=== PATIENT | female | born 1995 | race Caucasian/White ===

== ENCOUNTER 2018-04-10 16:12 | Emergency (ER) | payer OTHER ==
[2018-04-10 16:22] VITALS: BP 122/62
[2018-04-10] MEDS ORDERED: PHENAZOPYRIDINE 100 MG TABLET PO STA (16:33)
[2018-04-10] MEDS ORDERED: NITROFURANTOIN MACRO 100 MG CAPSULE PO STA (16:33)
[2018-04-10 16:35] LABS: BILIRUBIN,URINE NEGATIVE (NEGATIVE); LEUKOCYTE ESTERASE, URINE MODERATE (NEGATIVE); NITRITE,URINE POSITIVE (NEGATIVE); OCCULT BLOOD,URINE MODERATE (NEGATIVE); PH,URINE 6.5 PH (5.0-7.5); PROTEIN,URINE 100 mg/dL (NEGATIVE)
[2018-04-10 16:37] LABS: CLARITY,URINE CLOUDY (CLEAR); HCG UR QUAL NEGATIVE
--- NOTE | 2018-04-10 16:38 | ED Physician Documentation ---
PD HPI FEMALE - Stated complaint Stated Complaint: FEMALE - Chief complaint Chief Complaint: UTI - History obtained from History obtained from: Patient - History of Present Illness Pain level max: 0 Pain level max: 0 Associated symptoms: Urinary frequency, Hematuria. No: Fever, Vaginal pain, Vaginal bleeding, Vaginal discharge, Genital sore/lesion Similar symptoms before: Diagnosis (UTI) - Additional information Additional information: Patient is a 22 year old female who presents to the emergency department with c/o UTI symptoms. States she has been feeling urinary burning, urgency and frequency for the past 3 days. Has had history of UTIs as a child. LMP was 3 weeks ago. Took Azo for the past two days. Review of Systems Constitutional: denies: Fever, Chills Eyes: denies: Loss of vision Nose: denies: Rhinorrhea / runny nose Throat: denies: Sore throat Cardiac: denies: Chest pain / pressure Respiratory: denies: Cough GI: denies: Abdominal Pain, Nausea, Vomiting, Constipation, Diarrhea : reports: Dysuria, Frequency, Hematuria, LMP (3 weeks ago). denies: Incontinent, Discharge, Missed period Skin: denies: Rash Musculoskeletal: denies: Neck pain, Back pain, Extremity pain, Joint pain Neurologic: denies: Generalized weakness, Syncope, Headache Psychiatric: denies: Depressed, Anxiety PD PAST MEDICAL HISTORY - Past Medical History Past Medical History: Yes - Past Surgical History Past Surgical History: Yes - Present Medications Home Medications: Ambulatory Orders Medication Instructions Recorded Confirmed Nitrofurantoin Monohyd/M-Cryst 100 mg PO BID #10 capsule 04/10/18 [Macrobid 100 mg Capsule] Phenazopyridine HCl [Pyridium] 200 mg PO TID PRN #6 tablet 04/10/18 - Allergies Allergies/Adverse Reactions: Allergies Allergy/AdvReac Type Severity Reaction Status Date / Time No Known Drug Allergies Allergy Verified 04/10/18 16:21 - Social History Does the pt smoke?: No Smoking Status: Never smoker Does the pt drink ETOH?: No Does the pt have substance abuse?: No - Immunizations Immunizations are current?: Yes - POLST Patient has POLST: No PD ED PE NORMAL - Vitals Vital signs reviewed: Yes - General General: Alert and oriented X 3, No acute distress, Well developed/nourished - HEENT HEENT: Atraumatic, PERRL, Moist mucous membranes - Neck Neck: Supple, no meningeal sign - Cardiac Cardiac: RRR, No murmur - Respiratory Respiratory: Clear bilaterally - Abdomen Abdomen: Soft, Non tender - Back Back: No CVA TTP - Derm Derm: Warm and dry - Extremities Extremities: No deformity - Neuro Neuro: Alert and oriented X 3 - Psych Psych: Normal mood, Normal affect Results - Vitals Vitals: Vital Signs - 24 hr 04/10/18 16:20 Temperature 36.4 C L Heart Rate 73 Respiratory 16 Rate Blood Pressure 122/62 O2 Saturation 99 Oxygen O2 Source Room air - Labs Labs: Laboratory Tests 04/10/18 16:18 Urine Color ORANGE Urine Clarity CLOUDY Urine pH 6.5 Ur Specific [place] 1.020 Urine Protein 100 H Urine Glucose (UA) [place] Urine Ketones [place] Urine Occult Blood MODERATE H Urine Nitrite POSITIVE H Urine Bilirubin NEGATIVE Urine Urobilinogen [place] Ur Leukocyte Esterase MODERATE H Urine RBC TNTC H Urine WBC >25 H Urine WBC Clumps PRESENT Ur Squamous Epith Cells RARE Squamous Urine Bacteria Many H Ur Microscopic Review INDICATED Urine Culture Comments INDICATED Urine HCG, Qual NEGATIVE PD MEDICAL DECISION MAKING - ED course Complexity details: reviewed results, re-evaluated patient, considered differential, d/w patient ED course: Patient is a 22-year-old female who presents to the emergency department for UTI. Given Macrobid here. Will prescribe Macrobid for home and follow-up closely with her doctor. No evidence of pyelonephritis. No evidence of sepsis. No fever. No back pain. No vaginal bleeding or discharge. Patient counseled regarding signs and symptoms for which I believe and urgent re-evaluation would be necessary. Patient with good understanding of and agreement to plan and is comfortable going home at this time This document was made in part using voice recognition software. While efforts are made to proofread this document, sound alike and grammatical errors may occur. - Sepsis Event Vital Signs: Vital Signs - 24 hr 04/10/18 16:20 Temperature 36.4 C L Heart Rate 73 Respiratory 16 Rate Blood Pressure 122/62 O2 Saturation 99 Oxygen O2 Source Room air Departure - Departure Disposition: 01 Home, Self Care Clinical Impression: Urinary tract infection Qualifiers: Urinary tract infection type: acute cystitis Hematuria presence: without hematuria Qualified Code(s): N30.00 - Acute cystitis without hematuria Condition: Good Instructions: ED UTI Cystitis Female Follow-Up: MOE LAWSON MD [Primary Care Provider] - As Needed Prescriptions: Nitrofurantoin Monohyd/M-Cryst [Macrobid 100 mg Capsule] 100 mg PO BID #10 capsule Phenazopyridine HCl [Pyridium] 200 mg PO TID PRN #6 tablet PRN Reason: dysuria Comments: Take all antibiotics until gone. Return if you worsen. Discharge Date/Time: 04/10/18 16:54
[2018-04-10 16:42] LABS: BACTERIA,URINE Many /HPF (None Seen); RBC,URINE TNTC /HPF (0-5); SQUAMOUS EPITHELIAL CELL,UR RARE Squamous (<= Few); WBC CLUMPS,URINE PRESENT
== END 2018-04-10 16:54 | disposition home or self-care (01) ==
LOC: ED 16:12
DX: N30.00 Acute cystitis without hematuria (principal)
CPT/HCPCS: 81001; 81025; 87086; 99283; A9270; 81003; 87077; 87181

== ENCOUNTER 2022-07-23 08:00 | Outpatient (CLI) | payer OTHER | END 2022-07-23 23:59 | disposition home or self-care (01) | LOC: LAB.WC 08:00 | PROVIDERS: ATTEND Nurse Practitioner | DX: Z36.85 Encounter for antenatal screening for Streptococcus B (principal) | CPT/HCPCS: 87797 ==

== ENCOUNTER 2022-07-24 15:01 | Outpatient (CLI) | payer OTHER ==
[2022-07-24 15:19] VITALS: BP 137/86
[2022-07-24 16:27] LABS: RUPTURE OF MEMBRANES PLUS NEGATIVE (NEGATIVE)
--- NOTE | 2022-07-24 16:41 | PROVIDER PROGRESS NOTE ---
- HPI Chief Complaint: Leakage of vaginal fluid Current : Current EDU 08/16/22 Gestation 36 Weeks and 5 Days 1 Para 0 Vital Signs Temperature 98.1 F 07/24/22 15:14 Heart Rate 82 07/24/22 15:14 Respiratory Rate 16 07/24/22 15:14 Blood Pressure 137/86 H 07/24/22 15:14 Temperature 98.1 F 07/24/22 15:14 Heart Rate 82 07/24/22 15:14 Respiratory Rate 16 07/24/22 15:14 Blood Pressure 137/86 H 07/24/22 15:14 O2 Saturation If not protocol: Oxygen Flow, liters/minute - Procedures NST Procedure: NST Procedure Start Date 07/24/22 Start Time 15:15 Vibroacoustic Stimulation Used No Patient States Movement Yes - Plan Plan: Patient is a 26-year-old G1, P0 at 36 weeks 5 days gestation presenting to triage for leaking of fluid around 2 PM. She has good movement. No vaginal bleeding. Intermittent, irregular cramping for several days no significant change in discharge or itching or burning outside of this leaking episode she denies headache, right upper quadrant pain, changes in vision. Physical Constitutional: alert, no acute distress, well hydrated, well developed, well nourished, appropriate dress. Cardiovascular: Regular rate and rhythm. Respiratory: no respiratory distress. Abdomen: nondistended, nontender, no guarding. Psych: affect and mood appropriate, normal interaction, good eye contact. FHT: 135 bpm baseline, moderate variability, accelerations present, no decelerations. Reactive NST [place]: Rare FHT: 09/14/- ROM plus: Negative Assessment and plan 18-year-old at 36 weeks 5 days gestation leaking fluid Leaking fluid, but not rupture of membranes: ROM plus negative. Not a convincing amount of fluid. Discussed labor precautions with patient. We will follow-up on vaginosis panel. Contractions: Intermittent koby, but no pattern changer the last several days. Offered her to stay for reexamination, but patient declined as contractions are very irregular and not painful. Will return if she notices any change as she is still .
[2022-07-24 18:46] LABS: BACTERIAL VAGINOSIS DNA NEGATIVE (NEGATIVE)
[2022-07-24 18:47] LABS: CANDIDA GLABRATA DNA NEGATIVE (NEGATIVE); CANDIDA GROUP DNA NEGATIVE (NEGATIVE); CANDIDA KRUSEI DNA NEGATIVE (NEGATIVE); TRICHOMONAS VAGINALIS DNA NEGATIVE (NEGATIVE)
== END 2022-07-24 16:55 | disposition home or self-care (01) ==
LOC: WFO 15:01 → FBP 15:04 → WFO 16:55
PROVIDERS: ATTEND Obstetrics & Gynecology
DX: O99.891 Other specified diseases and conditions complicating pregnancy (principal); N89.8 Other specified noninflammatory disorders of vagina; O47.03 False labor before 37 completed weeks of gestation, third trimester; Z3A.36 36 weeks gestation of pregnancy
CPT/HCPCS: 59025; 81514; 84112; 99213

== ENCOUNTER 2022-07-27 11:50 | Outpatient (CLI) | payer OTHER ==
[2022-07-27 17:56] LABS: HCT - HEMATOCRIT 37.4 % (37.0-47.0); HGB - HEMOGLOBIN 12.2 g/dL (12.0-16.0); MEAN CORPUSCULAR HEMOGLOBIN 29.3 pg (27.0-31.0); MEAN CORPUSCULAR HGB CONC 32.6 g/dL (32.0-36.0); MEAN CORPUSCULAR VOLUME 89.9 fL (81.0-99.0); RED BLOOD COUNT 4.16 10^6/uL (4.20-5.40); RED CELL DISTRIBUTION WIDTH 13.2 % (12.0-15.0); WHITE BLOOD COUNT 10.7 x10^3/uL (4.8-10.8)
== END 2022-07-27 11:51 | disposition home or self-care (01) ==
LOC: LAB.N 11:50
PROVIDERS: ATTEND Nurse Practitioner
DX: Z34.90 Encounter for supervision of normal pregnancy, unspecified, unspecified trimester (principal); Z36.89 Encounter for other specified antenatal screening
CPT/HCPCS: 36415; 82950; 85027; 86850

== ENCOUNTER 2022-08-09 13:00 | Inpatient (IN) | payer OTHER ==
[2022-08-09 13:43] LABS: RUPTURE OF MEMBRANES PLUS POSITIVE (NEGATIVE)
--- NOTE | 2022-08-09 14:01 | HISTORY & PHYSICAL EXAMINATION ---
Admit History - Visit Reason Visit Reason: Membranes rupture - : 1 Parity: 0 Care: positive: [facility] Risk/History: positive: None Complications This : positive: None Smoking Status: Never smoker - Mother's Labs Mother's Blood Type: positive: A Mother's RH: positive: Positive GBS: positive: Group B Step Negative Rubella Status: positive: Non-immune - Other Maternal History Other Maternal History: HPI: Patient is a 26-year-old G1, P0 at 39 weeks 0 days gestation by LMP consistent with early ultrasound presenting today for leaking fluid, positive for ROM plus. She has good movement. No VILLAR/BV or RUQP. No vaginal bleeding. Denies nausea and vomiting. Denies urinary urgency or dysuria. She is having some moderate pain from contractions. All other symptoms reviewed and were negative except per HPI. Course LMP: 11/09/2021 CORNELIUS by LMP: 08/16/2022 Initial U/S: 04/01/2022 Final CORNELIUS: 08/16/2022 Problems: Transfer at 32 weeks from [place], [place]. 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 Depression: Stable on Sertraline 150mg/day. Pre- weight: 165 BMI: 23.74 A+/Rubella non-immune. immunization recommended. VZV: immune Genetic testing: MaternIt 21 Negative 01/22/2022 FAS: ("incomplete views of spine" on 07Sep, (then repeated 04/29/2022. F/U u/S ordered 06/22/2022) Vertex, spine visible/noral, baby is 20%ile Glucola: 1hr gtt ordered 06/22/2022 - 119 TDAP: Recieved 06/22/2022 GBS: 07/22 @36.3wks- Negative HSV: Denies in self and partner Breast Pump Rx: given 06/22/2022 MOD: anticipate pp contraception: Timing/ Condoms. These methods have worked well for her throughout adulthood. 'Doesn't do well on control" pap: 10/24/2021 normal Initial GC/CT: 03/09/2022 negative PMH Depression PSH Left clavicle surgery OB History SH Denies tobacco, alcohol, drugs Family History Mother: Alcoholism Father: Depression Maternal grandmother: Breast cancer, diabetes Maternal grandfather: Coronary artery disease Paternal grandfather: Hypertension Allergies No known drug allergies Medications Sertraline 150 mg daily vitamins Physical exam: General: Alert, oriented, no acute distress Head: Normal cephalic atraumatic Eyes: PERRLA, extraocular motions intact. Respiratory: Normal rate of respiration. No accessory muscle use, normal respiratory effort. Cardiovascular: Regular rate and rhythm Abdomen: Gravid, nontender, nondistended Extremities: Normal range of motion Neuro: Oriented x3. Normal movements Psych: Appropriate mood and affect. Normal judgment and insight SVE: 4/70/-3 FHT: 140 bpm baseline, moderate variability, accelerations present, no decelerations [place]: Every 2 to 4 minutes Labs: ROM plus: Positive Meds/Allgy - Home Medications Home Medications: Ambulatory Orders Medication Instructions Recorded Confirmed Nitrofurantoin Monohyd/M-Cryst 100 mg PO BID #10 capsule 04/10/18 [Macrobid 100 mg Capsule] Phenazopyridine HCl [Pyridium] 200 mg PO TID PRN #6 tablet 04/10/18 - Allergies Allergies/Adverse Reactions: Allergies Allergy/AdvReac Type Severity Reaction Status Date / Time No Known Drug Allergies Allergy Verified 04/10/18 16:21 Physical - Abdominal Exam Vital Signs: Temp Pulse Resp BP Pulse Ox O2 Flow Rate 98.4 F 91 16 144/89 H 08/09/22 13:08 08/09/22 13:08 08/09/22 13:08 08/09/22 13:08 Plan for Labor - Plan For Labor I expect patient to be DC'd or transferred within 96 hours.: Yes Plan for Labor: 1. SROM: -Admit to L&D, admit labs -Plan for labor assessment, if unchanged in 2 hours, will consider oxytocin for hypotonic uterine contractions 2. Depression: -Stable. Plan to continue sertraline and continue to monitor
[2022-08-09] MEDS ORDERED: hydrALAZINE INJ 20 MG/ML VIAL IVP PRN ×2 (14:02)
[2022-08-09] MEDS ORDERED: miSOPROStoL 200 MCG TABLET PR PRN (14:02)
[2022-08-09] MEDS ORDERED: miSOPROStoL 200 MCG TABLET BC PRN (14:02)
[2022-08-09] MEDS ORDERED: SODIUM CHLORIDE FLUSH 0.9% 10 ML SYRINGE IVP PRN (14:02)
[2022-08-09] MEDS ORDERED: LABETALOL 20 MG/4 ML SYRINGE IVP PRN ×3 (14:02)
[2022-08-09] MEDS ORDERED: CARBOPROST TROMETHAMINE 250 MCG/ML AMP IM PRN (14:02)
[2022-08-09] MEDS ORDERED: NIFEdipine 10 MG CAPSULE PO PRN (14:02)
[2022-08-09] MEDS ORDERED: TRANEXAMIC ACID IN NACL 1,000 MG/100 ML BAG IV PRN (14:02)
[2022-08-09] MEDS ORDERED: fentaNYL 100 MCG/2 ML VIAL IVP PRN (14:02)
[2022-08-09] MEDS ORDERED: OXYTOCIN 10 UNIT/ML VIAL IM PRN (14:02)
[2022-08-09] MEDS ORDERED: lidocaine 1% 20 ML MDV ID PRN (14:02)
[2022-08-09] MEDS ORDERED: TERBUTALINE 1 MG/ML VIAL SUBQ PRN (14:02)
[2022-08-09] MEDS ORDERED: METHYLERGONOVINE 0.2 MG/ML VIAL IM PRN (14:02)
[2022-08-09] MEDS ORDERED: OXYTOCIN/SODIUM CHLORIDE 500 ML IV PRN (14:02)
[2022-08-09 14:41] LABS: CREATININE,URINE 31.2 mg/dL; TOTAL PROTEIN,URINE TIMED < 6 mg/dL
[2022-08-09 15:17] LABS: BASOPHILS % (AUTO) 0.2 %; EOSINOPHILS # (AUTO) 0.1 10^3/uL (0.0-0.7); EOSINOPHILS % (AUTO) 0.8 %; HCT - HEMATOCRIT 33.9 % (37.0-47.0); HGB - HEMOGLOBIN 11.6 g/dL (12.0-16.0); LYMPHOCYTES # (AUTO) 1.5 10^3/uL (1.5-3.5); LYMPHOCYTES % (AUTO) 14.6 %; MEAN CORPUSCULAR HEMOGLOBIN 29.4 pg (27.0-31.0); MEAN CORPUSCULAR HGB CONC 34.2 g/dL (32.0-36.0); MEAN CORPUSCULAR VOLUME 85.8 fL (81.0-99.0); MONOCYTES # (AUTO) 0.5 10^3/uL (0.0-1.0); NEUTROPHILS % (AUTO) 78.8 %; PLT - PLATELET COUNT 239 10^3/uL (130-450); RED BLOOD COUNT 3.95 10^6/uL (4.20-5.40); RED CELL DISTRIBUTION WIDTH 12.6 % (12.0-15.0); WHITE BLOOD COUNT 10.1 x10^3/uL (4.8-10.8)
[2022-08-09 15:25] LABS: ALBUMIN 3.1 g/dL (3.2-5.5); ALBUMIN/GLOBULIN RATIO 0.8 (1.0-2.2); BILIRUBIN,TOTAL 0.4 mg/dL (0.2-1.0); CALCIUM 9.9 mg/dL (8.5-10.3); CREATININE 0.8 mg/dL (0.4-1.0); POTASSIUM 4.2 mmol/L (3.5-5.0); TOTAL PROTEIN 6.8 g/dL (6.7-8.2)
[2022-08-09] MEDS ORDERED: ONDANSETRON 4 MG/2 ML VIAL ONE (17:46)
[2022-08-09] MEDS: ONDANSETRON 4 MG/2 ML VIAL IVP PRN ×2 (17:49→22:19)
[2022-08-09] MEDS: LACTATED RINGERS 1,000 ML IV SCH ×2 (19:20→22:35)
[2022-08-09] MEDS ORDERED: ROPIVACAINE 0.2% 200 MG/100 ML BAG EP ONE ×2 (19:25→19:41)
[2022-08-09] MEDS ORDERED: ROPIVACAINE 0.2% 200 MG/100 ML BAG EP PRN (20:33)
[2022-08-09] MEDS ORDERED: NALOXONE 0.4 MG/ML VIAL IVP PRN (20:33)
[2022-08-09] MEDS ORDERED: diphenhydrAMINE INJ 50 MG/ML VIAL IVP PRN (20:33)
[2022-08-09] MEDS ORDERED: ONDANSETRON 4 MG/2 ML VIAL IVP PRN (20:33)
[2022-08-09] MEDS ORDERED: NALBUPHINE 10 MG/ML AMP IVP PRN (20:33)
[2022-08-09] MEDS ORDERED: ePHEDrine 50 MG/ML VIAL IVP PRN (20:33)
[2022-08-09] MEDS ORDERED: METOCLOPRAMIDE 10 MG/2 ML VIAL IVP PRN (20:33)
--- NOTE | 2022-08-09 20:33 | ANESTHESIA ---
Pre-Anesthesia VS, & Labs - Diagnosis active labor - Procedure labor epidural Vital Signs: Temp Pulse Resp BP Pulse Ox O2 Flow Rate 36.9 C 91 16 144/89 H 08/09/22 14:20 08/09/22 13:08 08/09/22 13:08 08/09/22 13:08 Height: 5 ft 11 in Weight (kg): 96.615 kg Body Mass Index: 29.7 BMI Classification: Overweight - NPO Last Fluid Intake: pt drinking clear liquids - Is Patient ?: Yes - Lab Results Current Lab Results: Laboratory Tests 08/09/22 15:39: Blood Type Recheck A POSITIVE 08/09/22 15:00: Blood Type A POSITIVE, Antibody Screen NEGATIVE 08/09/22 15:00: Sodium 132 L, Potassium 4.2, Chloride 100 L, Carbon Dioxide 22, Anion Gap 10.0, BUN 16, Creatinine 0.8, Estimated GFR (MDRD) 85 L, Glucose 91, Calcium 9.9, Total Bilirubin 0.4, AST 16, ALT 14, Alkaline Phosphatase 112, Total Protein 6.8, Albumin 3.1 L, Globulin 3.7, Albumin/Globulin Ratio 0.8 L 08/09/22 15:00: WBC 10.1, RBC 3.95 L, Hgb 11.6 L, Hct 33.9 L, MCV 85.8, MCH 29.4, MCHC 34.2, RDW 12.6, Plt Count 239, MPV 10.0, Neut # (Auto) 8.0 H, Lymph # (Auto) 1.5, [place] # (Auto) 0.5, Eos # (Auto) 0.1, Baso # (Auto) 0.0, Absolute Nucleated RBC 0.00, Nucleated RBC % 0.0 Fish Bones: 08/09/22 15:00 08/09/22 15:00 Home Medications and Allergies Active Medications Carboprost Tromethamine (Carboprost Tromethamine 250 Mcg/Ml Amp) 250 mcg IM .ONCE PRN PRN Reason: Hemorrhage Fentanyl (Fentanyl 100 Mcg/2 Ml Vial) 50 mcg IVP Q1H PRN PRN Reason: Severe Pain (score 7-10) Hydralazine HCl (Hydralazine Inj 20 Mg/Ml Vial) 5 - 10 mg IVP Q20M PRN; Protocol PRN Reason: SBP> or= 160 OR DBP> or= 110 Hydralazine HCl (Hydralazine Inj 20 Mg/Ml Vial) 10 mg IVP .ONCE PRN; Protocol PRN Reason: SBP> or= 160 OR DBP> or= 110 Oxytocin/Sodium Chloride (Pitocin/Sodium Chloride) 500 mls @ 999 mls/hr IV PRN PRN; Protocol PRN Reason: POST- HEMORR PREVENTION Tranexamic Acid (Tranexamic 1,000 Mg/100ml-Nacl) 1,000 mg in 100 mls @ 600 mls/hr IV Q30M PRN PRN Reason: EBL >1200mL and within 3hr Lactated Ringer's (Lr) 1,000 mls @ 125 mls/hr IV .Q8H ARTURO Last Admin: 08/09/22 19:20 Dose: 125 mls/hr Labetalol HCl (Labetalol 20 Mg/4 Ml Syringe) 20 - 80 mg IVP Q10M PRN; Protocol PRN Reason: SBP> or= 160 OR DBP> or= 110 Labetalol HCl (Labetalol 20 Mg/4 Ml Syringe) 20 mg IVP .ONCE PRN; Protocol PRN Reason: SBP> or= 160 OR DBP> or= 110 Labetalol HCl (Labetalol 20 Mg/4 Ml Syringe) 20 - 40 mg IVP Q10M PRN; Protocol PRN Reason: SBP> or= 160 OR DBP> or= 110 Lidocaine HCl (Lidocaine 1% 20 Ml Mdv) 20 ml ID .ONCE PRN PRN Reason: PERINEAL REPAIR Stop: 08/12/22 14:02 Methylergonovine Maleate (Methylergonovine 0.2 Mg/Ml Vial) 0.2 mg IM .ONCE PRN PRN Reason: Hemorrhage Misoprostol (Misoprostol 200 Mcg Tablet) 600 mcg BC .ONCE PRN PRN Reason: Hemorrhage Misoprostol (Misoprostol 200 Mcg Tablet) 800 mcg MD .ONCE PRN PRN Reason: Hemorrhage Nifedipine (Nifedipine 10 Mg Capsule) 10 - 20 mg PO Q20M PRN; Protocol PRN Reason: SBP> or= 160 OR DBP> or= 110 Ondansetron HCl (Ondansetron 4 Mg/2 Ml Vial) 4 mg IVP Q4HR PRN PRN Reason: Nausea / Vomiting Last Admin: 08/09/22 17:49 Dose: 4 mg Oxytocin (Oxytocin 10 Unit/Ml Vial) 10 unit IM .ONCE PRN PRN Reason: Step One if no IV access. Sodium Chloride (Sodium Chloride Flush 0.9% 10 Ml Syringe) 10 ml IVP PRN PRN PRN Reason: NEEDED PER PROVIDER ORDERS Sodium Chloride (Sodium Chloride Flush 0.9% 10 Ml Syringe) 10 ml IVP Q8H ARTURO Terbutaline Sulfate (Terbutaline 1 Mg/Ml Vial) 0.25 mg SUBQ .ONCE PRN PRN Reason: Tachystole Allergies/Adverse Reactions: Allergies Allergy/AdvReac Type Severity Reaction Status Date / Time No Known Drug Allergies Allergy Verified 04/10/18 16:21 Anes History & Medical History - Anesthetic History Anesthesia Complications: reports: No previous complications Family history of Anesthesia Complications: Denies Family history of Malignant Hyperthermia: Denies - Medical History Cardiovascular: reports: None Pulmonary: reports: None Smoking Status: Never smoker - Obstetrical History : 1 Parity: 0 Events: reports: None Complications: reports: None Exam General: Alert, Oriented x3, Cooperative Dental: WNL Mouth Openin Fingerbreadth Neck Mobility: Normal Mallampati classification: II Thyromental Distance: 4-6 cm Respiratory: Lungs clear Cardiovascular: Regular rate Plan Anesthesia Type: Epidural Consent for Procedure(s) Verified and Reviewed: Yes Code Status: Attempt Resuscitation ASA classification: 2-Mild systemic disease Is this case an emergency?: No
[2022-08-09] MEDS ORDERED: OXYTOCIN/SODIUM CHLORIDE 500 ML IV SCH (22:25)
[2022-08-09] MEDS: SODIUM CHLORIDE FLUSH 0.9% 10 ML SYRINGE IVP SCH (22:48)
[2022-08-10] MEDS: ONDANSETRON 4 MG/2 ML VIAL IVP PRN (04:12)
[2022-08-10] MEDS: LACTATED RINGERS 1,000 ML IV SCH (04:35)
[2022-08-10] MEDS ORDERED: SIMETHICONE CHEW 80 MG TABLET PO PRN (05:26)
--- NOTE | 2022-08-10 05:31 | DELIVERY NOTE ---
Delivery Note - Labor Labor: positive: Spontaneous, Augmented by oxytocin - Delivery Method Delivery Method: positive: Spontaneous vaginal delivery - Presentation Presentation: positive: Vertex - Nuchal Cord Nuchal Cord: positive: None - Anesthetic Anesthetic Type: - Amniotic Fluid Description Amniotic Fluid Description: positive: Light meconium - Episiotomy Type Episiotomy Type: positive: None - Laceration Laceration: positive: Labial (Hemostatic) - Delivery Outcome Delivery Outcome: positive: Livebirth - [place]: positive: Placed in direct skin contact with mother, [place] used sex: positive: Female - Cord Cord: positive: 3 vessels - Placenta Placenta: positive: Intact - Estimated Blood Loss Estimated Blood Loss (in cc): 250 - Post Delivery Events Post Delivery Events: positive: No post delivery events - Delivery Comments (Free Text/Narrative) Delivery Comments (Free Text/Narrative): Preoperative Diagnoses Term labor/SROM 39 weeks gestation G1, P0 Postoperative Diagnoses Same Delivery of live pereyra Delivery Summary: Patient was placed in the dorsal lithotomy position. Upon maternal pushing the head was delivered atraumatically followed by the anterior shoulder, posterior shoulder, then the remainder of the infant's body. A female was delivered with APGARS of 7 at 1 minute and 9 at 5 minutes. The infant was placed on its mother's chest . After the cord finished pulsating, the umbilical cord was clamped times two and cut. The placenta delivered intact with three vessel cord. Placenta was not sent to pathology. Thirty units of Pitocin were added to the IV fluid and allowed to run freely. Uterine massage was performed until uterus was deemed firm. Upon inspection the perineum, bilateral upper labia tears were noted, but these were hemostatic. These did not require any suturing. Uterus again massaged and found to be firm. Needle and sponge counts were correct. Patient was stable and allowed to recover in L&D room. Infant was stable and remained in room with mother. weight is pending at this time.
[2022-08-10] MEDS ORDERED: LACTATED RINGERS 1,000 ML IV SCH (06:00)
[2022-08-10] MEDS: IBUPROFEN 600 MG TABLET PO SCH ×3 (06:49→18:54)
[2022-08-10] MEDS: ACETAMINOPHEN 500 MG TABLET PO SCH ×3 (06:49→23:00)
[2022-08-10] MEDS: SODIUM CHLORIDE FLUSH 0.9% 10 ML SYRINGE IVP SCH (09:26)
[2022-08-10] MEDS: DOCUSATE SODIUM 100 MG CAPSULE PO PRN ×2 (14:50→21:05)
[2022-08-10] MEDS: SERTRALINE 50 MG TABLET PO SCH (18:54)
[2022-08-11] MEDS: ACETAMINOPHEN 500 MG TABLET PO SCH ×2 (00:15→09:56)
[2022-08-11] MEDS: IBUPROFEN 600 MG TABLET PO SCH ×2 (03:17→09:57)
[2022-08-11] MEDS ORDERED: MEASLES,MUMPS & RUBELLA VACC 0.5 ML VIAL SUBQ ONE (08:00)
--- NOTE | 2022-08-11 09:05 | Discharge Plan ---
Discharge Plan Problem Reviewed?: Yes Disposition: Home, Self Care Condition: Good Diet: Regular Activity Restrictions: Activity as Tolerated (Pelvic rest until bleeding stops) Shower Restrictions: No Driving Restrictions: No Weight Bearing: Full Weight Instruction Topics: Vaginal After, Depression No Smoking: If you smoke, Please STOP! Call for help. Follow-up with: Seamus Garg MD [Provider Admit Priv/Credential] -
[2022-08-11 09:07] VITALS: BP 131/81
--- NOTE | 2022-08-11 09:09 | DISCHARGE SUMMARY ---
"Discharge Summary Admit Date: 08/09/22 Discharge Date: 08/11/22 Discharging Provider: Esperanza Rivera DO Code Status: Attempt Resuscitation Condition at Discharge: Good Discharge Disposition: Home, Self Care Discharge Facility Name: [facility] - DIAGNOSES Admission Diagnoses: Premature rupture of membranes 39 weeks Single live - HPI History of Present Illness: 26yo at 39w presented to [facility] with SROM. 4cm dilated on admission. - CONSULTS | PROCEDURES Consultations: Anesthesia Procedures: Pitocin augmentation Epidural - HOSPITAL COURSE Hospital Course: 26yo at 39w presented to [facility] with SROM. 4cm dilated on admission. Meconium fluid noted. Pitocin augmentation. Received epidural. Progressed to 10cm. Uncomplicated . Recovering appropriately . Mood is good. Breastfee ding. Patient feels ready to be discharged to home, day 1. precautions reviewed. Plan for early follow up by 2w due to depression, continue sertraline. - ALLERGIES Allergies/Adverse Reactions: Allergies Allergy/AdvReac Type Severity Reaction Status Date / Time No Known Drug Allergies Allergy Verified 04/10/18 16:21 - MEDICATIONS Home Medications: Ambulatory Orders Medication Instructions Recorded Confirmed Nitrofurantoin Monohyd/M-Cryst 100 mg PO BID #10 capsule 04/10/18 [Macrobid 100 mg Capsule] Phenazopyridine HCl [Pyridium] 200 mg PO TID PRN #6 tablet 04/10/18 - PHYSICAL EXAM AT DISCHARGE General Appearance: positive: No acute distress Eyes Bilateral: positive: EOMI Respiratory: positive: No respiratory distress Abdomen: positive: Non-tender Skin: positive: Color nml Extremities: positive: Non-tender Neurologic/Psychiatric: positive: Oriented x3 - LABS Result Diagrams: 08/09/22 15:00 08/09/22 15:00 - QUALITY (Female Hip Fx Only) Was patient sent home on osteoporosis medication?: No - FOLLOW UP Follow Up: 2 weeks - TIME SPENT Time Spent in Discharge (Minutes): 30"
[2022-08-11] MEDS: DOCUSATE SODIUM 100 MG CAPSULE PO PRN (09:57)
[2022-08-11] MEDS: SERTRALINE 50 MG TABLET PO SCH (10:24)
--- NOTE | 2022-08-11 14:33 | Labor Flowsheet ---
Labor Flowsheet Datetime Report Generated by CPN: 08/11/2022 14:33 Datetime: 08/11/2022 05:17 VITAL SIGNS NBP Sys/Carie/Mean (mmHg): 130 : 82 : 92 Pulse: 70 Datetime: 08/10/2022 19:15 SpO2 (%): 99 Datetime: 08/10/2022 07:27 Membranes Ruptured Date/Time: 08/09/2022 11:45 Datetime: 08/10/2022 06:30 Respirations: 18 Datetime: 08/10/2022 06:15 Stage of : Recovery Datetime: 08/10/2022 06:00 Pain Location: Back (Annotations: At epidural site, heat pad to area.) Datetime: 08/10/2022 05:45 PAIN Pain Scale: 0 Pain Presence: None/Denies Pain Type: N/A Pain Relief Measures: Comfort Measures Datetime: 08/10/2022 05:20 Temperature (C): 36.9 Temperature Route: Oral Pain Goal: 4 Pain Assessment Comments: Datetime: 08/10/2022 05:15 LaborFlag: Labor Datetime: 08/10/2022 05:10 UTERINE ACTIVITY Monitor Mode: External Frequency (min): 1-2.5 Quality: Strong Duration (sec): 35-60 Pattern: Normal: <= 5 Contractions in 10 Minutes Resting Tone (Palpate): Relaxed FHR Baseline Rate : 150 Variability: Moderate 6-25 bpm Accelerations: 10X10 Decelerations: Variable Category: Category II Datetime: 08/10/2022 05:00 Pain Coping: Pushing with contractions Anesthesia Level Check: T6- Xyphoid Datetime: 08/10/2022 04:50 Comfort Measures: Coaching; Family Support Datetime: 08/10/2022 04:45 Actions for Decelerations: Side to Side; IV Bolus Comments: Pitocin remains off; Dr Garg at pushing w/patient Pushing Progress: Descent with Pushing; Presenting Part Visible Datetime: 08/10/2022 04:30 ASSESSMENT A Monitor Mode: External US Pushing Position: Pushing with Contractions; Pushing Lithotomy Preparation for Delivery: Setup for Delivery Datetime: 08/10/2022 04:25 MEDICATIONS Pitocin (milliunits): Discontinued TEACHING Instructional Method: Demo; Verbal; Patient Instructed; Family/Support Person Instructed; Verbalize d Understanding Plan of Care: Plan of Care Discussed; Vaginal Delivery Labor/Induction: Pushing Methods Datetime: 08/10/2022 04:23 STAGE 2 Pushing: Coached on Pushing; No Urge to Push Stage 2 Comments: pushing begun Datetime: 08/10/2022 04:21 Patient Care Comments: duong removed for delivery Datetime: 08/10/2022 04:18 Monitor Interventions for UA: [place] Adjusted Datetime: 08/10/2022 04:16 PATIENT CARE IV/Blood Work: IV Bolus Started Datetime: 08/10/2022 04:09 Antiemetics/Antacids: Zofran (mg) @ 4mg Datetime: 08/10/2022 04:01 COMMUNICATION Communication: Call/Page Placed to Provider Provider Notified (Name): Dr Forest Notification Reason: Status Update; Status; Labor Status Communication Comments: Will be in for delivery Datetime: 08/10/2022 03:58 VAGINAL EXAM Dilatation (cm): 10.0 Effacement (%): 100 Station: 2 Exam by: RNC Spear Datetime: 08/10/2022 03:55 FHR Baseline Changes: No Baseline Change Patient Position/Activity: Left Extreme Datetime: 08/10/2022 03:46 Contraction Comments: Centricity down due to scheduled migration update, monitor strip still record ing Datetime: 08/10/2022 03:30 Vital Sign Comments: Datetime: 08/10/2022 03:10 Hygiene: Celeste Care Datetime: 08/10/2022 03:06 Vaginal Bleeding: Small Cervix, Consistency: Soft Cervix, Position: Anterior Datetime: 08/10/2022 03:02 Pitocin Checklist: At Least 1 Acceleration of 15 bpm x 15 Seconds in 30 Minutes or Adequate Variabi lity; No More than 1 Late Deceleration Occurred in Past 30 Minutes; No More than 2 Variable Decelerat ions > 60 Seconds in Duration and decreasing >60 bpm in 30 minutes; No More than 5 Uterine Contractio ns in 10 Minutes for any 20 Minute Interval; Uterus Palpates Soft between Contractions Datetime: 08/10/2022 03:00 ANESTHESIA Anesthesia Plans: Epidural Datetime: 08/10/2022 00:44 Medication Comments: preset epidural bolus infusing via pump Datetime: 08/10/2022 00:36 Vaginal Exam Comments: Pt reports feeling more vaginal pressure Datetime: 08/09/2022 23:00 Medications: Pitocin Datetime: 08/09/2022 22:12 Nausea/Vomiting: Present Datetime: 08/09/2022 21:55 Provider Reviewed Strip: No Datetime: 08/09/2022 20:49 I/O Interventions: Duong Cath Inserted Datetime: 08/09/2022 20:15 Anesthesia Comments: infusion begun Datetime: 08/09/2022 20:10 Epidural Procedure: Loading Dose Datetime: 08/09/2022 19:48 Epidural Positioning: Sitting Datetime: 08/09/2022 19:47 PROCEDURE TIME OUT Procedure Type: 1945 Datetime: 08/09/2022 19:42 Procedure Verify: Correct Patient Identity; Accurate Procedure Consent Form; Agreement on Procedure to be Done; Correct Patient Position; Addressed Need to Administer Antibiotics or Fluids for Irrigat ion; Safety Precautions Based on Patient History or Medication Use Datetime: 08/09/2022 19:33 MATERNAL ASSESSMENT Level of Consciousness: Alert DTR's/Clonus: DTRs 3+; No Clonus Headache: Denies Breath Sounds, Left: Clear and Equal Breath Sounds, Right: Clear and Equal RUQ Epigastric Pain: Denies Datetime: 08/09/2022 19:30 Unit Routine: Unit Personnel; Safety/Fall Risk Prevention; Bathroom Privileges; Routine Time Outs; Medications Pain Management: Epidural; Pain Scale/Goals; Comfort Measures Datetime: 08/09/2022 19:03 Strip Reviewed by: P. Pacheco,RN Datetime: 08/09/2022 19:02 Oxygen Method: Room Air Datetime: 08/09/2022 18:02 Monitor Interventions for FHR: Ultrasound Adjusted Datetime: 08/09/2022 16:07 Membrane Status: Ruptured Membranes Rupture Method: Spontaneous Amniotic Fluid Color: Clear Amniotic Fluid Amount: Small Amniotic Fluid Odor: Normal
== END 2022-08-11 13:40 | disposition home or self-care (01) | DRG 807 ==
LOC: WFO 13:00 → FBP 13:02 → WFO 14:02
PROVIDERS: ADMIT Obstetrics & Gynecology; ATTEND Obstetrics & Gynecology
PROC: 10E0XZZ Delivery of Products of Conception, External Approach (ICD-10-PCS; principal; 2022-08-10)
DX: O42.02 Full-term premature rupture of membranes, onset of labor within 24 hours of rupture (principal); Z37.0 Single live birth; O77.0 Labor and delivery complicated by meconium in amniotic fluid; O99.344 Other mental disorders complicating childbirth; F32.A Depression, unspecified; O70.0 First degree perineal laceration during delivery; Z3A.39 39 weeks gestation of pregnancy
CPT/HCPCS: 59025; 80053; 82570; 84112; 84156; 85025; 86850; 86900; 86901; 99215; A9270; J7120

== ENCOUNTER 2024-01-30 05:21 | Outpatient (CLI) | payer OTHER | END 2024-01-30 23:59 | disposition critical access hospital (66) | LOC: EMS 05:21 | PROVIDERS: ATTEND Emergency Medicine | DX: R11.2 Nausea with vomiting, unspecified (principal); R19.7 Diarrhea, unspecified; R42 Dizziness and giddiness | CPT/HCPCS: A0425; A0427 ==

== ENCOUNTER 2024-01-30 05:44 | Emergency (ER) | payer OTHER ==
--- NOTE | 2024-01-30 05:44 | ED Physician Documentation ---
PD HPI NVD - Stated complaint Stated Complaint: V/N/D - History obtained from History obtained from: Patient, EMS - Additonal information Additional information: BIBA. HPI from patient. Patient complains of nausea, vomiting, diarrhea. This started a around midnight (approximately 6 hours [facility]). Patient's and her son both have the symptoms since yesterday. Patient has been given 500 cc normal saline IV en route by EMS along with 4 mg IV Zofran. She had improvement after these measures, but, upon arrival, is complaining of rapid return of the nausea. Patient does not offer complaint of abdominal pain, but, on review of systems, notes waxing and waning, generalized cramping abdominal pain. Denies chance of . Has not noticed any blood in the vomitus nor diarrhea. Denies fever. Review of Systems Constitutional: reports: Reviewed and negative Cardiac: reports: Reviewed and negative Respiratory: reports: Reviewed and negative GI: reports: Abdominal Pain, Nausea, Vomiting, Diarrhea. denies: Abdominal Swelling, Constipation, Hematemesis, Bloody / black stool : denies: Dysuria, Frequency, Now [facility] PD PAST MEDICAL HISTORY - Past Medical History Past Medical History: Yes Psych: Depression - Present Medications Home Medications: Ambulatory Orders Medication Instructions Recorded Confirmed Nitrofurantoin Monohyd/M-Cryst 100 mg PO BID #10 capsule 04/10/18 [Macrobid 100 mg Capsule] Phenazopyridine HCl [Pyridium] 200 mg PO TID PRN #6 tablet 04/10/18 Ondansetron Odt [Zofran] 4 mg TL Q6H PRN #10 tablet 01/30/24 Promethazine Supp [Phenergan Supp] 25 mg [place] Q6H PRN #10 supp 01/30/24 Promethazine [Phenergan] 25 mg PO Q6H PRN #10 tab 01/30/24 - Allergies Allergies/Adverse Reactions: Allergies Allergy/AdvReac Type Severity Reaction Status Date / Time No Known Drug Allergies Allergy Verified 04/10/18 16:21 - Living Situation Living Situation: reports: With spouse/s.o. Living Arrangement: reports: At home PD ED PE NORMAL - Vitals Vital signs reviewed: Yes - General General: Alert and oriented X 3, No acute distress, Well developed/nourished - HEENT HEENT: Other (pasty mucous membranes) - Cardiac Cardiac: RRR, No murmur - Respiratory Respiratory: No respiratory distress, Clear bilaterally - Abdomen Abdomen: Soft, Non tender, Non distended - Derm Derm: Normal color, Warm and dry Results - Vitals Vitals: Vital Signs - 24 hr 01/30/24 01/30/24 01/30/24 05:51 08:23 10:16 Temperature 36.7 C 37.9 C 37.6 C Heart Rate 97 104 H 101 H Respiratory 16 18 18 Rate Blood Pressure 132/84 H 133/85 H 133/76 H O2 Saturation 100 100 96 01/30/24 10:49 Temperature Heart Rate 97 Respiratory 18 Rate Blood Pressure 134/73 H O2 Saturation 98 Oxygen O2 Source Room air - Labs Labs: Laboratory Tests 01/30/24 01/30/24 06:00 06:00 WBC 13.5 H RBC 4.73 Hgb 13.3 Hct 40.9 MCV 86.5 MCH 28.1 MCHC 32.5 RDW 12.2 Plt Count 241 MPV 9.4 Neut # (Auto) 12.4 H Lymph # (Auto) 0.5 L [place] # (Auto) 0.4 Eos # (Auto) 0.1 Baso # (Auto) 0.0 Absolute Nucleated RBC 0.00 Nucleated RBC % 0.0 Sodium 137 Potassium 3.3 L Chloride 106 Carbon Dioxide 22 Anion Gap 9.0 BUN 18 Creatinine 0.9 Estimated GFR (MDRD) 74 L Glucose 137 H Calcium 9.8 Total Bilirubin 0.6 AST 12 ALT 11 Alkaline Phosphatase 59 Total Protein 6.8 Albumin 4.5 Globulin 2.3 Albumin/Globulin Ratio 2.0 Lipase 13 PD Medical Decision Making - ED course Complexity details: reviewed results, re-evaluated patient, considered differential, d/w patient ED course: Mild leukocytosis on CBC (WBC 13.5), mild hypokalemia (3.3). Having received 500 cc normal saline IV en route by EMS, she is given another half liter NS in the emergency department and another dose of 4 mg Zofran IV. Unfortunately, she continued to have nausea and vomiting despite these measures, and thus she is given a second liter of normal saline, 25 mg IV Phenergan. On reevaluation, she appears comfortable but reports ongoing nausea. Has not had emesis since arrival to ED. ED RN gives patient cup of water and I encouraged her to take small, infrequent sips to see if she can tolerate liquids PO (with d/c contingent on her ability to do so). This was around the time of end of my shift and thus care of patient is turned over to oncoming ED physician (Dr. Brady) Departure - Departure Disposition: 01 Home, Self Care Clinical Impression: Nausea and vomiting Condition: Stable Instructions: ED Gastroenteritis Viral Prescriptions: Promethazine [Phenergan] 25 mg PO Q6H PRN #10 tab PRN Reason: Nausea / Vomiting Promethazine Supp [Phenergan Supp] 25 mg [place] Q6H PRN #10 supp PRN Reason: Nausea / Vomiting Ondansetron Odt [Zofran] 4 mg TL Q6H PRN #10 tablet PRN Reason: Nausea / Vomiting Comments: Small frequent fluids and bland food initially. Progress diet as tolerated. Hopefully this will improve over a day or 2. Use a combination of ondansetron orally dissolving tablet for nausea or promethazine either orally or suppository to help with nausea and vomiting as well. Recheck if not improved over the next couple of days and at least improved enough today to not be actively vomiting etc. I sent your prescriptions to your preferred pharmacy. Forms: PCP List Discharge Date/Time: 01/30/24 10:51
[2024-01-30] MEDS: ONDANSETRON 4 MG/2 ML VIAL IVP STA (06:04)
[2024-01-30] MEDS: SODIUM CHLORIDE 0.9% 1,000 ML IV STA ×2 (06:04→06:49)
[2024-01-30 06:05] LABS: BASOPHILS % (AUTO) 0.1 %; EOSINOPHILS # (AUTO) 0.1 10^3/uL (0.0-0.7); HCT - HEMATOCRIT 40.9 % (37.0-47.0); HGB - HEMOGLOBIN 13.3 g/dL (12.0-16.0); LYMPHOCYTES # (AUTO) 0.5 10^3/uL (1.5-3.5); LYMPHOCYTES % (AUTO) 3.4 %; MEAN CORPUSCULAR HEMOGLOBIN 28.1 pg (27.0-31.0); MEAN CORPUSCULAR HGB CONC 32.5 g/dL (32.0-36.0); MEAN CORPUSCULAR VOLUME 86.5 fL (81.0-99.0); MEAN PLATELET VOLUME 9.4 fL (7.9-10.8); MONOCYTES # (AUTO) 0.4 10^3/uL (0.0-1.0); MONOCYTES % (AUTO) 3.2 %; NEUTROPHILS # (AUTO) 12.4 10^3/uL (1.5-6.6); NEUTROPHILS % (AUTO) 91.9 %; PLT - PLATELET COUNT 241 10^3/uL (130-450); RED BLOOD COUNT 4.73 10^6/uL (4.20-5.40); RED CELL DISTRIBUTION WIDTH 12.2 % (12.0-15.0); WHITE BLOOD COUNT 13.5 x10^3/uL (4.8-10.8)
[2024-01-30 06:25] LABS: ALBUMIN 4.5 g/dL (3.2-5.5); BILIRUBIN,TOTAL 0.6 mg/dL (0.2-1.0); CALCIUM 9.8 mg/dL (8.5-10.3); CREATININE 0.9 mg/dL (0.6-1.3); POTASSIUM 3.3 mmol/L (3.5-4.5); TOTAL PROTEIN 6.8 g/dL (6.4-8.9)
[2024-01-30] MEDS ORDERED: PROMETHAZINE 25 MG/1 ML VIAL ONE (06:33)
[2024-01-30] MEDS: PROMETHAZINE INJ 25 MG in SODIUM CHLORIDE 0.9% 50 ML IV STA (06:44)
[2024-01-30] MEDS: LACTATED RINGERS 1,000 ML IV STA (08:50)
[2024-01-30] MEDS: FAMOTIDINE 20 MG/2 ML VIAL IVP STA (08:50)
[2024-01-30] MEDS: KETOROLAC 15 MG/ML VIAL IVP STA (08:50)
[2024-01-30] MEDS: DROPERIDOL 5 MG/2 ML VIAL IVP STA (08:50)
--- NOTE | 2024-01-30 10:47 | ED Physician Documentation ---
ED Addendum - Addendum Addendum: 01/30/24 10:46 The patient was still having some nausea on change of shift and was able to drink some fluids but felt upset stomach with it. She was given some more antiemetic with droperidol which did improve her more. She is able to take fluids at this point. She does feel able to go home. Diagnoses: Acute nausea and vomiting 2. Viral gastroenteritis Disposition: Patient discharged home in stable condition.
[2024-01-30 10:58] VITALS: BP 134/73; O2SAT 98
== END 2024-01-30 10:51 | disposition home or self-care (01) ==
LOC: EDUNIT# → ED 05:44
DX: A08.4 Viral intestinal infection, unspecified (principal)
CPT/HCPCS: 36415; 80053; 83690; 85025; 96361; 96365; 96375; 99284; 99285; J7040; J7120